=== PATIENT | female | born 1995 | race Hispanic/Latino ===

== ENCOUNTER 2018-09-18 16:07 | Emergency (ER) | payer BC ==
[2018-09-18] MEDS ORDERED: ACETAMINOPHEN 325 MG TAB ONE (16:30)
[2018-09-18 16:48] LABS: RAPID GROUP A STREP NEGATIVE (NEGATIVE)
[2018-09-18 16:53] LABS: BILIRUBIN,URINE Negative (NEGATIVE); COLOR,URINE Yellow (YELLOW); GLUCOSE, URINE (UA) Negative (NEGATIVE); KETONES,URINE Negative (NEGATIVE); LEUKOCYTE ESTERASE ,URINE Trace (NEGATIVE); NITRATE,URINE Negative (NEGATIVE); OCCULT BLOOD,URINE Negative (NEGATIVE); PH,URINE 6.5 (5.0-8.0); PROTEIN,URINE Negative (NEGATIVE)
[2018-09-18 17:02] LABS: APPEARANCE,URINE CLEAR (CLEAR)
[2018-09-18 17:13] LABS: HCG,QUAL RESULT NEGATIVE (NEGATIVE)
[2018-09-18 18:10] LABS: RBC,URINE 0-1 /HPF (0-1)
[2018-09-18 18:11] LABS: BACTERIA,URINE Rare /HPF (None Seen); SQUAMOUS EPITHELIAL CELL,UR Moderate /HPF (0-2)
== END 2018-09-18 17:29 | disposition home or self-care (01) ==
LOC: EDH 16:07
DX: J06.9 Acute upper respiratory infection, unspecified (principal)
CPT/HCPCS: 81001; 81025; 87804; 87880